=== PATIENT | female | born 1955 | race Caucasian/White ===

== ENCOUNTER → 2020-07-30 | Outpatient (CLI) | payer OTHER | LOC: SJCVCIMAG 12:16 → SJCVC 12:16 | PROVIDERS: ATTEND Internal Medicine Cardiovascular Disease | DX: I08.0 Rheumatic disorders of both mitral and aortic valves (principal); R94.31 Abnormal electrocardiogram [ECG] [EKG]; I44.7 Left bundle-branch block, unspecified; I25.10 Atherosclerotic heart disease of native coronary artery without angina pectoris; I25.5 Ischemic cardiomyopathy; I11.0 Hypertensive heart disease with heart failure; I50.32 Chronic diastolic (congestive) heart failure; E78.00 Pure hypercholesterolemia, unspecified; R01.1 Cardiac murmur, unspecified; Z90.710 Acquired absence of both cervix and uterus; Z79.82 Long term (current) use of aspirin; Z79.899 Other long term (current) drug therapy; Z82.49 Family history of ischemic heart disease and other diseases of the circulatory system ==

== ENCOUNTER → 2020-08-08 | Outpatient (CLI) | payer OTHER | LOC: SJCVC 14:49 | PROVIDERS: ATTEND Internal Medicine Cardiovascular Disease | DX: I25.5 Ischemic cardiomyopathy (principal); R94.31 Abnormal electrocardiogram [ECG] [EKG]; R00.1 Bradycardia, unspecified; I11.0 Hypertensive heart disease with heart failure; I50.22 Chronic systolic (congestive) heart failure; I25.2 Old myocardial infarction; E78.00 Pure hypercholesterolemia, unspecified; I25.10 Atherosclerotic heart disease of native coronary artery without angina pectoris; Z79.82 Long term (current) use of aspirin; Z79.899 Other long term (current) drug therapy; Z82.49 Family history of ischemic heart disease and other diseases of the circulatory system ==

== ENCOUNTER 2020-08-16 08:25 | Observation (INO) | payer OTHER ==
[~2020-08-16] VITALS: Ht 162.6 cm; Wt 69.9 kg
--- NOTE | ~2020-08-16 | P ---
[facility] [place] [address] PROCEDURE REPORT Name: ZACK RUSSELL Room #: 200-I [facility].David#: [id number] Admission: 08/16/20 Attend Phys: Rafa Escobar MD Discharge: 08/17/20 Date of : 55 Report #: [id number] THIS REPORT FOR: cc: Tavo Conteh MD, Kevin MD Couchonnal,Rafa Snyder MD ~ PROCEDURE PERFORMED: Dual chamber implantable cardioverter defibrillator implantation. PREOPERATIVE DIAGNOSIS: Ischemic cardiomyopathy. POSTOPERATIVE DIAGNOSIS: Ischemic cardiomyopathy. HISTORY: The patient is a 65-year-old female with history of coronary artery disease status post [place] with resultant ischemic cardiomyopathy with EF of less than 35%, [place] [employer] functional class II-III heart failure symptoms. She has been on optimal medical therapy for over 3 months and therefore meets criteria for ICD implantation for primary prevention of sudden cardiac . ANESTHESIA: The patient underwent MAC anesthesia with no anesthesia related complications. DESCRIPTION OF PROCEDURE: The patient underwent informed consent. We discussed the details of the procedure including the risks, which include but not limited to bleeding, vascular damage, stroke, [place], cardiac perforation, pneumothorax. She understood these risks and is willing to proceed. The patient was brought to the EP laboratory in fasting and unsedated state, prepped and draped in a sterile fashion, received IV antibiotics prior to initiation of the procedure and a venogram was performed showing patency of the left axillary vein. Next, lidocaine was injected at the incision site. Incision was made, pocket created over the prepectoral fascia and access was obtained twice to left axillary vein using the extrathoracic approach. Of note, she did have a lot of bleeding within the pocket due to being on aspirin and Plavix and therefore, I spent quite a bit of time, probably 20 minutes just trying to obtain hemostasis. Next, leads were positioned into the right atrial appendage and right ventricular apex, both with adequate pacing and sensing thresholds. The leads were sutured to the prepectoral fascia. Device connected, tug test was performed and placed in the pocket, pocket irrigated with vancomycin and the pocket was closed in 2-0 for the deep layer, 3-0 for the middle layer and surgical glue was placed to outer skin layer. I did decide to place a pressure dressing given her higher bleeding risk with her aspirin and Plavix. The patient awoke neurologically and hemodynamically intact. No complications. No significant bleeding. The implanted device was [employer] model number #[id number], serial #[id number]. Leads were 5076 in the atrium with a serial #[id number]. [address] [address] PROCEDURE REPORT Name: ZACK RUSSELL Room #: 200-I [facility] Neymar Méndez#: [id number] Admission: 08/16/20 Attend Phys: Rafa Escobar MD Discharge: 08/17/20 Date of : 55 Report #: [id number] Ventricular lead was a 6935 55 cm, serial #[id number]. Atrial lead demonstrated P waves of 3 millivolts, pacing impedance of 751 ohms, pacing threshold 1.5 volts at 0.4 milliseconds. The RV lead demonstrated R waves of 7.6 millivolts, pacing impedance of 444 ohms, pacing threshold 0.9 volts at 0.5 milliseconds. The device was programmed in the DDD 60-130 mode. The ventricular zone was set at 180-220 beats per minute with three rounds of burst followed by 3 rounds of ramp followed by max output shocks. VF zone was set at greater than 220 beats per minute with ATP while charging followed by max output shocks. CONCLUSIONS: 1. Successful implantable cardioverter defibrillator implantation. 2. Satisfactory atrial and ventricular pacing and sensing thresholds. By: [id number] Rafa Escobar MD /nt
[2020-08-16 08:56] LABS: HEMATOCRIT 37.2 % (37.0-47.0); HEMOGLOBIN 12.4 gm/dL (12.0-15.0); MCH 29.6 pg (26.0-34.0); MCHC 33.2 g/dL (28.0-37.0); MCV 89.2 fL (80.0-100.0); RBC 4.17 mil/uL (4.20-5.00); WBC 4.2 thou/uL (4.0-11.0)
[2020-08-16 08:57] LABS: ALBUMIN 3.4 g/dL (3.4-5.0); APTT 24.3 Seconds (24.5-32.8); CALCIUM 9.1 mg/dL (8.5-10.1); CHLORIDE 108 mmol/L (98-107); CO2 26 mmol/L (21-32); CREATININE 0.9 mg/dL (0.6-1.0); GLUCOSE 85 mg/dL (74-106); INR 0.97; PROTIME 10.6 Seconds (10.5-12.1); SGOT 28 U/L (15-37); SGPT 19 U/L (14-59); SODIUM 140 mmol/L (136-145); TOTAL BILIRUBIN 0.5 mg/dL (0.2-1.0)
[2020-08-16 08:58] LABS: BUN 21 mg/dL (7-18)
[2020-08-16] MEDS ORDERED: PLAVIX 75 MG TA75 MG PO (12:48)
[2020-08-16] MEDS ORDERED: ASA81BEC PO (12:49)
[2020-08-16] MEDS ORDERED: PLAQUENIL200 MG PO (12:50)
[2020-08-16] MEDS ORDERED: LASIX 40 MG TAB40 MG PO (12:50)
[2020-08-16] MEDS ORDERED: TOPROL XL25 MG PO (12:50)
[2020-08-16] MEDS ORDERED: K-TAB10 MEQ PO (12:51)
[2020-08-16] MEDS ORDERED: CRESTOR20 MG PO (12:51)
--- NOTE | 2020-08-16 12:55 | NUR ---
PT RETURNS FROM PACU. HAS BRUISING AND PUFFINESS TO LEFT CHEST JUST LATERAL TO PACEMAKER IMPLANT SITE. SOFT TO TOUCH. PRESSURE DRESSING INTACT. PT DENIES ANY NAUSEA OR PAIN. DR BOGGS AWARE
--- NOTE | 2020-08-16 12:57 | NUR ---
1300-DR BOGGS HERE TO LOOK AT IMPLANT SITE. ICE APPLIED
--- NOTE | 2020-08-16 18:35 | NUR ---
RECEIVED PT FROM THE [employer]. ADMISSION COMPLETED. PT IS VENKATA FLOOD. ICD PLACED IN LEFT CHEST, SITE IS C/D/I, WITH HEMATOMA IN MIDAXILIARY AREA. SURROUNDING AREA SOFT. POSSIBLE DRAINING TOMORROW. VSS, AFEBRILE, SR ON MONITOR. PT BP RUNS 90SBP, WITH HR 60s. POC IS FOR PT TO HAVE SCAN FOR PLACEMENT IN AM, WITH INTERROGATION; POSSIBLE DRAINING. NPO AFTER MIDNIGHT FOR AM PROCEDURES. LOW FALL PRECAUTIONS IN PLACE.
[2020-08-16 19:14] VITALS: BP 106/48
[2020-08-17 00:02] VITALS: BP 101/46
[2020-08-17 05:30] VITALS: BP 117/62
[2020-08-17 07:26] VITALS: BP 123/53
--- NOTE | 2020-08-17 07:27 | NUR ---
patients cares were assumed at shift change. patient was assessed and meds were passed. patient has done well this shift and has been pain free. a dose of tylenol was given bedfore bed. rounds were made. bed alarm on this shift. the bed was in a low and locked position
[2020-08-17] MEDS ORDERED: ENTRESTO 24 MG1 EACH PO (07:47)
[2020-08-17 10:46] VITALS: BP 124/56
[2020-08-17 11:26] VITALS: BP 124/56
--- NOTE | 2020-08-17 12:00 | NUR ---
ASSESSMENT CHARTED. PT ALERT AND ORIENTED. VSS. SEEN BY DR. BOGGS ORDERS GIVEN TO DISCHARGE PT TO HOME. DISCHARGE INSTRUCTIONS GIVEN TO PT. PT VERBERLISED UNDERSTANDING.
== END 2020-08-17 13:43 | disposition home or self-care (01) ==
LOC: CATH 08:25 → 2N 14:36
PROVIDERS: ADMIT Internal Medicine Cardiovascular Disease; ATTEND Internal Medicine Cardiovascular Disease
DX: I49.5 Sick sinus syndrome (principal); I25.5 Ischemic cardiomyopathy; I11.0 Hypertensive heart disease with heart failure; I50.23 Acute on chronic systolic (congestive) heart failure; I25.10 Atherosclerotic heart disease of native coronary artery without angina pectoris; E78.5 Hyperlipidemia, unspecified; Z79.82 Long term (current) use of aspirin; Z79.899 Other long term (current) drug therapy

== ENCOUNTER → 2020-10-22 | Outpatient (CLI) | payer OTHER ==
[~2020-10-22] MED LIST: ASA81BEC PO; CRESTOR20 MG PO; ENTRESTO 24 MG1 EACH PO; FISH OIL 1,0001 EAC9 PO; K-TAB10 MEQ PO; LASIX 40 MG TAB40 MG PO; MULTI VITAMIN1 EACH PO; PLAQUENIL200 MG PO; PLAVIX 75 MG TA75 MG PO; TOPROL XL25 MG PO
== END ==
LOC: LAB 14:47
PROVIDERS: ATTEND Student in an Organized Health Care Education/Training Program
DX: Z20.822 Contact with and (suspected) exposure to COVID-19 (principal)

== ENCOUNTER → 2020-10-24 | Outpatient (CLI) | payer OTHER ==
[~2020-10-24] VITALS: Ht 160 cm; Wt 70.8 kg
== END | disposition home or self-care (01) ==
LOC: GI 11:37
PROVIDERS: ATTEND Internal Medicine Gastroenterology
DX: K62.5 Hemorrhage of anus and rectum (principal); K64.8 Other hemorrhoids; I11.0 Hypertensive heart disease with heart failure; I50.9 Heart failure, unspecified; E78.00 Pure hypercholesterolemia, unspecified; Z98.890 Other specified postprocedural states; Z79.899 Other long term (current) drug therapy; Z85.41 Personal history of malignant neoplasm of cervix uteri

== ENCOUNTER → 2021-02-12 | Outpatient (CLI) | payer OTHER | LOC: SJCVC 10:33 | PROVIDERS: ATTEND Internal Medicine Cardiovascular Disease | DX: R94.31 Abnormal electrocardiogram [ECG] [EKG] (principal); I49.3 Ventricular premature depolarization; I11.0 Hypertensive heart disease with heart failure; I50.22 Chronic systolic (congestive) heart failure; I25.10 Atherosclerotic heart disease of native coronary artery without angina pectoris; E78.00 Pure hypercholesterolemia, unspecified; I25.5 Ischemic cardiomyopathy; Z95.810 Presence of automatic (implantable) cardiac defibrillator; Z79.899 Other long term (current) drug therapy; Z72.89 Other problems related to lifestyle; Z82.49 Family history of ischemic heart disease and other diseases of the circulatory system ==